=== PATIENT | female | born 1940 | race Caucasian/White ===

== ENCOUNTER 2016-09-20 08:19 | Inpatient (IN) | payer OTHER, MEDICARE ==
[2016-08-25 11:58] VITALS: BMI 34.0
--- NOTE | 2016-08-25 12:30 | PAT Medication Instructions ---
Service Date Aug 25, 2016. Current Home Medication List Aspirin (Aspirin Ec), 81 MG PO QPM Atorvastatin (Lipitor), 20 MG PO HS Losartan Potassium (Cozaar), 50 MG PO QAM Meloxicam (Mobic), 15 MG PO DAILY PRN for Pain Metoprolol Tartrate (Lopressor) (Lopressor), 25 MG PO QPM Metoprolol Tartrate (Lopressor) (Lopressor), 50 MG PO QAM Sertraline (Zoloft), 50 MG PO QAM Medication Instructions For Your Scheduled Surgery - Hold the following medications per surgeon's instructions: Meloxicam (Mobic), 15 MG PO DAILY PRN for Pain - Hold the following medications the morning of surgery: Losartan Potassium (Cozaar), 50 MG PO QAM - Take the following medications the morning of surgery with a sip of water OTHERWISE NOTHING TO EAT OR DRINK AFTER MIDNIGHT: Sertraline (Zoloft), 50 MG PO QAM Metoprolol Tartrate (Lopressor) (Lopressor), 50 MG PO QAM - Take the following medications as scheduled the night before surgery: Aspirin (Aspirin Ec), 81 MG PO QPM Atorvastatin (Lipitor), 20 MG PO HS Metoprolol Tartrate (Lopressor) (Lopressor), 25 MG PO QPM If you have any questions please call us at [phone] or [phone] or [phone]
[2016-08-25 12:56] LABS: BASO % 0.3 %; BASO ABS # 0.02 K/uL (0-0.2); COMPLETE YES; EOS % 1.6 %; HEMATOCRIT 41.4 % (37-47); IG% 0.2 %; LYMPH % 35.4 %; LYMPH ABS # 2.16 K/uL (1.2-3.4); MEAN CELL VOLUME 91.2 fL (80-100); MEAN CORPUSCULAR HEMOGLOBIN 30.4 pg (25-34); MEAN CORPUSCULAR HGB CONC 33.3 g/dl (32-36); MEAN PLATELET VOLUME 9.7 fL (7.4-10.4); MONO % 6.5 %; PLATELET COUNT 124 K/uL (130-400); RED BLOOD COUNT 4.54 M/uL (4.2-5.4); WHITE BLOOD COUNT 6.11 K/uL (4.8-10.8)
--- NOTE | 2016-08-25 13:00 | DIAGNOSTIC IMAGING REPORT ---
CHEST 2 VIEWS ROUTINE CLINICAL HISTORY: Preoperative evaluation. COMPARISON STUDY: No previous studies for comparison. FINDINGS: No pneumothorax or pleural effusion is present. There is no evidence of pulmonary edema. There are left axillary surgical clips. There is mild to moderate cardiomegaly. IMPRESSION: 1. No acute findings. 2. Mild to moderate cardiomegaly. Electronically signed by: Jeremy Morris M.D. 08/25/2016 12:58 PM Dictated Date/Time: 08/25/2016 12:58 PM
[2016-08-25 13:13] LABS: INR 1.1 (0.9-1.1); PROTHROMBIN TIME (PATIENT) 11.4 SECONDS (9.0-12.0)
[2016-08-25 13:37] LABS: BUN/CREATININE RATIO 14.7 (10-20); CALCIUM 8.8 mg/dl (8.5-10.1); POTASSIUM 3.9 mmol/L (3.5-5.1)
--- NOTE | 2016-09-17 18:45 | HISTORY & PHYSICAL EXAMINATION ---
DATE OF ADMISSION: 09/20/2016 CHIEF COMPLAINT: Left knee pain. HISTORY OF PRESENT ILLNESS: A 75-year-old female referred by my partner Dr. Guillen for treatment of her left knee. She has got a fairly long history of left medial side knee pain, which has become less responsive to conservative treatment. She has been treated with injections. Initial ones helped, but become less successful over time. Pain is mostly all medial and increased with weightbearing. Now that has become less successful with injections and it has really changed her life and she cannot walk any significant distance. She has difficulty going to the grocery store. She would like to have something done to fix her knee pain. PAST MEDICAL HISTORY: 1. Hypertension. 2. Coronary artery disease, status post cardiac stent placement in 2008 without residual symptoms. 3. Sleep apnea. 4. Hiatal hernia. 5. Gastroesophageal reflux disease. 6. Obesity with a BMI of 35. 7. Breast cancer status post mastectomy without recurrence. PAST SURGICAL HISTORY: Include 1. Right ankle surgery 2001. 2. Cardiac stent placement in 2008. 3. Eye implant. 4. Mastectomy. ALLERGIES: None. CURRENT MEDICINES: 1. Aspirin 81 mg a day. 2. Meloxicam once a day. 3. Atorvastatin 20 mg at bedtime. 4. Sertraline 50 mg in the morning. 5. Losartan 50 mg in the morning. 6. Metoprolol 25 mg 2 tablets in the morning, 1 in the evening. SOCIAL HISTORY: A 75-year-old female. She lives by herself. FAMILY HISTORY: Noncontributory. REVIEW OF SYSTEMS: Negative for diabetes, neurologic problems, vascular or bleeding disorders. Denies any current chest pain or shortness of breath. She does have a stent placed, but no symptoms. PHYSICAL EXAMINATION: GENERAL: Reveals a healthy, pleasant middle-aged female. Looks to be in reasonably good health. HEENT: Benign. NECK: Supple. No lymphadenopathy. LUNGS: Clear to auscultation. HEART: Regular rate and rhythm. ABDOMEN: Soft, nontender, nondistended. EXTREMITIES: Grossly neurovascularly intact except as follows: Examination of the left knee reveals the patient walks with a slight bit of a limp. She has got varus alignment to the knee. She is tender over the medial joint line. She got bony hypertrophy. Small knee effusion. Range of motion is a couple of degrees short of full extension to 125 degrees of flexion. No instability. X-RAYS: X-rays of the left knee were reviewed. It shows advanced medial compartment DJD. She has got complete loss of medial joint space. The lateral compartment looks pretty well preserved. Patellofemoral compartment looks pretty well preserved. With stress testing of her lateral compartments well preserved. ASSESSMENT: A 75-year-old female with isolated medial compartment degenerative joint disease, failed conservative care. She would like to have something done to fix her pain. PLAN: We are going to take her to the operating room and do a left partial knee replacement. If we get in there and the disease is too bad, we will do a full knee replacement. The risks and benefits of this procedure were explained to the patient including but not limited to DVT, PE, , infection, neurological injury, vascular injury, bleeding problem, pain, limited range of motion, stiffness, failure to his symptoms, incomplete relief of symptoms, need for further surgery in the future, fracture, leg length inequality, nerve palsy, persistent pain, dislocation, need for revision surgery, etc. The patient understands and desires to proceed. Informed consent was obtained. We talked about stopping her Mobic 10 days preop. She will take metoprolol the morning of surgery. Her lab workup has all been normal. As far as discharge plans, she is hoping to be discharged to rehab as she does live by herself.
[2016-09-20] VITALS (8 sets, daily range): BP systolic 93–136; BP diastolic 53–75; PULSE 51–67; TEMP 36.2–36.8; O2SAT 95–99; Ht 152.4 cm; Wt 79.6 kg
[~2016-09-20] VITALS: Ht 152.4 cm; Wt 79.6 kg
[~2016-09-20 08:19] MED LIST: ACETAMINOPHEN 500 MG TAB PO SCH; ASPI81TA28 PO; ATOR-22 PO; BUPIVACAINE 0.5 % 5 MG/1 ML PF 10ML VIAL ONE; BUPIVACAINE LIPOSOME 266 MG, BUPIVACAINE/EPINEPHRINE INJ 50 ML, SODIUM CHLORIDE 0.9% PF... INFIL SCH; CEFAZOLIN 2000 MG/60 ML D5W 60 ML IV SCH; FAMOTIDINE 20 MG TAB PO SCH; GABAPENTIN 300 MG CAP PO SCH; LACTATED RINGER'S 1000ML 1,000 ML IV SCH; LACTATED RINGER'S 1000ML 500 ML IV ONE; LACTATED RINGER'S 1000ML IV SCH; LOSA50TA6 PO; MELO7.5T5 PO; METO25TA56 PO; METO50TA16 PO; METOCLOPRAMIDE HCL 10 MG TAB PO SCH; SCOPOLAMINE 1.5 MG TDSY TD SCH; SERT50TA PO; TRANEXAMIC ACID INJ 1,000 MG in SODIUM CHLORIDE 0.9% 100ML 100 ML IV SCH
--- NOTE | 2016-09-20 09:08 | History & Physical Bridge Note ---
H&P Re-Evaluation Bridge Note: I have examined the patient, reviewed the History & Physical and in the interval since the performance of the History & Physical I have noted the following changes of clinical significance: No changes noted
[2016-09-20] MEDS ORDERED: MIDAZOLAM HCL 1 MG/ML 2ML VIAL ONE ×2 (09:39)
[2016-09-20] MEDS ORDERED: LIDOCAINE HCL 2% 2 ML VIAL (20MG/ML) ONE (10:51)
[2016-09-20] MEDS ORDERED: BUPIVACAINE/EPINEPHRINE 0.25% 1:200,000 30 ML VIAL ONE (10:51)
[2016-09-20] MEDS ORDERED: SODIUM CHLORIDE 0.9% PF 50 ML VIAL ONE (10:51)
[2016-09-20] MEDS ORDERED: BACITRACIN 50000 UNIT VIAL ONE (10:51)
[2016-09-20] MEDS ORDERED: PROPOFOL IV EMULSION 10 MG/ML 20 ML VIAL IV ONE (10:51)
[2016-09-20] MEDS ORDERED: BUPIVACAINE LIPOSOME 1/3% 266 MG/20 ML VIAL INFIL ONE (10:51)
[2016-09-20] MEDS ORDERED: EpHEDrine SULFATE 50MG/5ML SYR ONE (11:16)
[2016-09-20] MEDS ORDERED: EpHEDrine SULFATE INJ 50 MG/ML AMP IV PRN (12:00)
[2016-09-20] MEDS ORDERED: ATROPINE SULFATE 0.1 MG/ML 5ML SYR IV PRN (12:00)
[2016-09-20] MEDS ORDERED: ONDANSETRON INJ 2 MG/ML 2 ML VIAL IV PRN ×2 (12:00→13:00)
[2016-09-20] MEDS ORDERED: FENTANYL CITRATE INJ 50 MCG/1 ML 2 ML VIAL IV PRN (12:00)
--- NOTE | 2016-09-20 12:55 | [facility] Post Operative Brief Note ---
Immediate Operative Summary Operative Date Sep 20, 2016. Pre-Operative Diagnosis left knee degenerative joint disease Post-Operative Diagnosis same Procedure(s) Performed left unicompartmental knee arthroplasty Surgeon Dr Cody Pereira Director On Air Surgeon(s) Dionicio Boo Estimated Blood Loss 20ML Findings Left Knee DJD Fluids (cc crystalloids) 1100 cc Specimens A: Left knee bone and tissue Drains None Anesthesia Spinal Complication(s) None Disposition Recovery Room / PACU
[2016-09-20] MEDS ORDERED: ZOLPIDEM TARTRATE 5 MG TAB PO PRN (13:00)
[2016-09-20] MEDS ORDERED: SILVER SULFADIAZINE 1% CR 50 GM JAR EXT PRN (13:00)
[2016-09-20] MEDS ORDERED: MAGNESIUM HYDROXIDE SUSP 30 ML UDC PO PRN (13:00)
[2016-09-20] MEDS ORDERED: ALUMINUM/MAGNESIUM/SIMETH (MAALOX MAX) 30 ML UDC PO PRN (13:00)
[2016-09-20] MEDS ORDERED: BISACODYL 10 MG SUPP PR PRN (13:00)
[2016-09-20] MEDS ORDERED: DiphenhydrAMINE HCL 50 MG/ML VIAL IV PRN (13:00)
[2016-09-20] MEDS ORDERED: METOCLOPRAMIDE HCL INJ 5 MG/ML 2 ML VIAL IV PRN (13:00)
--- NOTE | 2016-09-20 13:43 | DIAGNOSTIC IMAGING REPORT ---
TWO VIEWS LEFT KNEE CLINICAL HISTORY: Postoperative examination. FINDINGS: AP and crosstable lateral portable views of the left knee are obtained. A left knee hemiarthroplasty of the medial compartment is in near anatomic alignment. Degenerative narrowing seen at the patellofemoral articulation. No acute fracture is identified. There are expected postoperative changes around the knee including skin clips, soft tissue edema, and subcutaneous gas. IMPRESSION: Expected postoperative changes status post left knee hemiarthroplasty. No acute fracture is seen. Electronically signed by: Gerard Shepard M.D. 09/20/2016 1:42 PM Dictated Date/Time: 09/20/2016 1:41 PM
--- NOTE | 2016-09-20 14:33 | OPERATIVE REPORT ---
DATE OF OPERATION: 09/20/2016 SURGEON: Dr. Cody Pereira. GRAIN ELEVATOR CLERK: JUNAID Joy PREOPERATIVE DIAGNOSIS: Left knee medial compartment degenerative joint disease. POSTOPERATIVE DIAGNOSIS: Same. PROCEDURE PERFORMED: Left knee Bi[employer] [place] mobile-bearing partial knee replacement. COMPLICATIONS: None. ESTIMATED BLOOD LOSS: 20 mL. FLUID REPLACEMENT: 1100 mL crystalloid fluid replacement. ANESTHESIA: Spinal. DRAINS: None. SPECIMENS: Left knee sent for pathology. TOURNIQUET TIME: 62 minutes at 300 mmHg. OPERATIVE INDICATIONS: The patient is a 75-year-old fairly active, independent female who has had a several year history of increasing left knee pain and discomfort. It has become unresponsive to conservative treatment. Her symptoms really localized to the medial side of her knee. X-rays showed advanced medial compartment DJD. The patient was strongly desiring partial knee replacement. OPERATIVE FINDINGS: Operative findings revealed grade 4 mlwh-[id number] disease in the medial femoral condyle and medial tibial plateau. She did have some grade 2 changes laterally as well as in the patellofemoral joint. She has a [id number] sized knee joint effusion. She had osteophytes of the medial femoral condyle and medial tibial plateau. OPERATIVE IMPLANTS: Operative implants consisted of: 1. [employer] [place] size small femoral component. 2. [employer] [place] left medial size AA tibia. 3. A 4 mm mobile-bearing polyethylene insert. OPERATIVE PROCEDURE: The patient was taken to the operating room, identified and placed on the operating table in supine position. All contact areas were appropriately padded. IV antibiotics were provided by anesthesia team. A spinal anesthetic and adductor canal block had been provided in the holding area. Avendano catheter was placed in sterile fashion. A left thigh tourniquet was then placed. Left lower extremity was then prepped and draped in the usual sterile fashion. The left leg was elevated and exsanguinated with Esmarch and tourniquet was placed at 300 mmHg. An anterior approach of the left knee was then performed through a longitudinal incision extending from the superior pole of the patella just medial to the tibial tubercle. Sharp dissection was carried through the subcutaneous tissues down to the level of the extensor mechanism. A medial parapatellar arthrotomy incision was made. Some subperiosteal dissection was carried out medially. Great care was taken to protect the medial collateral ligament at all times. The osteophytes were taken off the distal femur. The femur was then sized to a size small. The external tibial alignment jig was then placed in the anterior face of the tibia and attached to the small femoral spoon. The tibial guide was then secured with the use of a pin. The proximal tibial cut was made and then sized to a size AA tibia. Attention was then drawn to the femur. The distal femur was entered with a sharp drill. Intramedullary guide was placed. A small femoral template was then placed and set for the 4 setting. The holes were drilled for the femoral component. The posterior cutting guide was placed and the posterior cut was made. The 0 spigot was placed and the distal femur was milled. I then removed the medial meniscus. We then trialed the knee and the 4 feeler gauge fit appropriately in flexion and the 2 in extension. The 2 spigot was used to mill the distal femur and we milled the distal femur. We then trialed it again and the 4 feeler gauge fit appropriately in both flexion and extension. I then went to preparing the surfaces. The anterior and posterior osteophyte guide was then placed in the distal femur and the anterior osteophyte and the posterior osteophyte were removed. The cement drill was used to create some cement holes for cement interdigitation. The tibial tray was pinned in place. The toothbrush blade saw was used to create the keel for the tibial tray. We then trialed the knee one more time and the 4 insert fit most appropriately in both flexion and extension. The polyethylene tracked appropriately. Soft tissue tension was appropriate. Attention was then drawn toward placement of these implants. All trial implants were removed. The wound was irrigated with copious amounts of pulsatile lavage solution. A single batch of [place] G cement was mixed. A left size AA medial tibial tray was then cemented in place followed by a small femoral component. I then pressurized with the 4 feeler gauge. The knee was brought out into about 30 degrees short of full extension until cement had hardened. A final cement check was then performed. We then trialed the knee again. I then placed a formal bearing insert. The wound was then irrigated extensively. The tourniquet was then let down for a tourniquet time of 62 minutes. Hemostasis was assured with use of electrocautery. The extensor mechanism was then closed with #1 Vicryl suture. The subcutaneous tissues were then closed with 2-0 Dexon suture in a buried interrupted fashion. Skin was closed with skin ashley. Leg was then cleaned and dried and a sterile dressing of Xeroform, 4 x 4, sterile cast padding and Teddy bandage were applied. The patient was then transferred to the recovery room in stable condition. The patient tolerated the procedure well and no complications. All needle and sponge counts were correct at the end of the operation. I attest to the content of the Intraoperative Record and any orders documented therein. Any exceptio ns are noted below.
--- NOTE | 2016-09-20 14:36 | Anesthesiology Progress Note ---
Anesthesia Post Op Note Date & Time Sep 20, 2016 at 14:36 Vital Signs Pain Intensity: 0 Vital Signs Past 12 Hours Date Time Temp Pulse Resp B/P Pulse Ox O2 Delivery O2 Flow Rate FiO2 09/20/16 14:15 36.7 65 15 97/56 95 Nasal Cannula 2 09/20/16 14:00 67 14 97/51 95 Nasal Cannula 2 09/20/16 13:50 70 12 97/60 97 Nasal Cannula 2 09/20/16 13:40 59 13 90/50 97 Nasal Cannula 2 09/20/16 13:30 74 14 99/50 96 Nasal Cannula 2 09/20/16 13:20 59 14 107/58 99 Mask 10 09/20/16 13:10 59 13 101/49 98 Mask 10 09/20/16 13:00 36.8 62 18 92/52 99 Mask 10 09/20/16 08:30 36.5 55 18 136/69 96 Room Air 09/20/16 08:30 36.5 57 18 136/69 96 Room Air Notes Mental Status: alert / awake / arousable, participated in evaluation Pt Amnestic to Procedure: Yes Nausea / Vomiting: adequately controlled Pain: adequately controlled Airway Patency, RR, SpO2: stable & adequate BP & HR: stable & adequate Hydration State: stable & adequate Neuraxial Anesthesia: was administered, sensory block is resolving Anesthetic Complications: no major complications apparent
[2016-09-20] MEDS: D5W AND 1/2NSS + 20MEQ KCL 1,000 ML IV SCH ×2 (15:47→23:42)
[2016-09-20] MEDS: CHECK SCOPOLAMINE PATCH PLACEMENT SCH ×2 (15:52→23:41)
[2016-09-20] MEDS: FERROUS GLUCONATE 324 MG TAB PO SCH (17:42)
[2016-09-20] MEDS: KETOROLAC TROMETHAMINE 15 MG/ML VIAL IV. SCH ×2 (17:43→23:41)
--- NOTE | 2016-09-20 18:11 | PROGRESS NOTE ---
DATE: 09/20/2016 SUBJECTIVE: A 75-year-old female postop from a left partial knee replacement. She is doing well. Not having any pain yet. No chest pain or shortness of breath. Not feeling dizzy or lightheaded. OBJECTIVE: VITAL SIGNS: Temperature 36.3. Vital signs stable. GENERAL: Physical examination reveals a healthy pleasant elderly female. She is sitting up in bed and looks pretty comfortable. LUNGS: Clear to auscultation. HEART: Regular rate and rhythm. ABDOMEN: Soft, nontender, and nondistended. EXTREMITIES: Grossly neurovascularly intact except as follows: Examination of the left lower extremity reveals the leg to be well aligned. Dressing is clean, dry and intact. She can dorsiflex and plantarflex her foot appropriately. X-RAYS: X-rays of the left knee were reviewed from the recovery room. It shows a left partial knee replacement. Components looked to be in good position. No signs of problems. ASSESSMENT: A 75-year-old female postop from a left partial knee replacement, doing well. Her pain is controlled. She is neurologically intact. PLAN: 1. DVT prophylaxis including thigh-high TEDs, SCDs, and aspirin twice a day. 2. PT/OT. She can bear as tolerated. Left total knee protocol. 3. Pain control, doing well with current pain regimen. 4. Disposition: She is hoping to be discharged to rehab for a brief rehab stay once stable. She does live by herself and will need some assistance. MARLA
[2016-09-20] MEDS: CEFAZOLIN IV 1,000 MG in DEXTROSE 5% 50ML 50 ML IV SCH (20:41)
[2016-09-20] MEDS: DOCUSATE SODIUM 100 MG CAP PO SCH (20:43)
[2016-09-20] MEDS: ASPIRIN 325 MG ECTAB PO SCH (20:43)
[2016-09-20] MEDS: ATORVASTATIN 20 MG TAB PO SCH (20:43)
[2016-09-20] MEDS: METOPROLOL TARTRATE 25 MG TAB PO SCH (20:45)
[2016-09-20] MEDS: ACETAMINOPHEN 500 MG TAB PO SCH (21:37)
[2016-09-21] VITALS (8 sets, daily range): BP systolic 112–143; BP diastolic 63–78; PULSE 60–74; TEMP 36.7–36.9; O2SAT 93–94
[2016-09-21] MEDS: CEFAZOLIN IV 1,000 MG in DEXTROSE 5% 50ML 50 ML IV SCH (03:28)
[2016-09-21] MEDS: ACETAMINOPHEN 500 MG TAB PO SCH ×3 (05:22→22:04)
[2016-09-21] MEDS: KETOROLAC TROMETHAMINE 15 MG/ML VIAL IV. SCH ×3 (05:22→19:20)
[2016-09-21] MEDS ORDERED: ASPEC325 PO (07:13)
[2016-09-21] MEDS ORDERED: FRRG PO (07:13)
[2016-09-21] MEDS ORDERED: ULT50X PO (07:13)
--- NOTE | 2016-09-21 07:15 | Discharge Instructions ---
Discharge Instructions Date of Service Sep 21, 2016. Admission Reason for Admission: Osteoarthritis of Left Knee; Knee pain Discharge Discharge Diagnosis / Problem: Left Partial Knee Replacement Discharge Goals Goal(s): Decrease discomfort, Improve function, Increase independence, Improve disease control, Therapeutic intervention Activity Recommendations Activity Level: Assistance Required Therapies: Physical Therapy, Occupational Therapy Weightbearing Status: Left weightbearing . Additional Information Patient informed of condition: Yes Advance Directives: No DNR: No Level of Care: Acute Rehab Communicable Disease: No Prognosis: Improving Instructions / Follow-Up Instructions / Follow-Up ACTIVITY RECOMMENDATIONS: Physical Therapy: * You will go to physical therapy three times each week for four to six weeks after your surgery in order to regain your knee range of motion and to retrain your knee to work properly. * It is just as important to make sure you are getting your knee perfectly straight as it is to regain your knee bend. * Taking a pain pill an hour before therapy can help you have a more productive and comfortable therapy session. Home Exercise: * You were shown a series of exercises (heel props, heel slides, etc.) in the hospital. Do these exercises three to four times each day including the exercises you were shown in physical therapy. Walking: * Get up and walk several times each day. For the first four weeks, try not to stand or walk for more than one hour at a time. If you do stand or walk for more than one hour, you will not hurt anything, but your knee and leg will likely swell. * As you feel comfortable, you may change from the walker or crutches to a cane and then to independent walking. MEDICATIONS: New Medicine: * You will likely be taking one or more of these medications: 1. Tramadol - A quick and shorter-acting pain medication. Take one to two tablets every four to six hours to lessen your pain. 2. Iron Sulfate - Take three times each day for the month after surgery to help you replace the blood lost during surgery. 3. Aspirin - Thins your blood to lessen the chance of forming a blood clot. * The most common side effects of pain medicine and iron are nausea and constipation. If nausea or constipation is too much of a problem or if you have any questions about your new medicines or doses, call [facility] at . We will try to help you manage these issues. VERY IMPORTANT TO READ AND REVIEW" Pain: * The immediate post-operative period after knee replacement surgery is often quite painful. * You are given a prescription for pain medicine. You should take it, as directed, when you need it, especially before physical therapy and before going to bed. Pain that interferes with sleep is very common and can last several months. * You will likely need pain medicine for the first four to six weeks. It will not stop all of the pain. The pain will lessen and as you feel better, you may change to milder pain medicine such as Tylenol. * The most common side effects of pain medicine are nausea and constipation, so don't take more than you need. SPECIAL CARE INSTRUCTIONS: TEDs/Elastic Stockings: * The white elastic stockings help limit swelling and prevent blood clots from forming in your legs. The more you wear them, the more they work. * Wear them for six weeks after knee replacement surgery and four weeks after partial knee replacement. Prevention of Infection: * Take antibiotics one hour before any dental cleaning, dental work, urological procedure, gastrointestinal procedure or any invasive surgery in order to prevent your new joint from getting infected. * You may get the antibiotics from the doctor performing the procedure or you may call our office at before and we will call in a prescription to the pharmacy of your choice. Things to Watch For: * Drainage from the incision site that occurs more than one week after your surgery. * Severely increased knee/leg pain or swelling. * Increased redness at the incision site. * Fever above 102 degrees Fahrenheit. * Unusual chest pain or shortness of breath. * Unusual pain or burning with urination. Call [facility] at with any of the above problems or if you have any questions about your medicines or recovery. FOLLOW UP VISIT: Make an appointment to see your doctor for approximately two weeks after surgery for a progress check and staple removal by calling the office at . Current Hospital Diet Patient's current hospital diet: Regular Diet Discharge Diet Recommended Diet: Regular Diet Procedures Procedures Performed: left unicompartmental knee arthroplasty Pending Studies Studies pending at discharge: no Medical Emergencies . Who to Call and When: Medical Emergencies: If at any time you feel your situation is an emergency, please call [phone] immediately. . Non-Emergent Contact Non-Emergency issues call your: Surgeon . . "Provider Documentation" section prepared by Cody Pereira. Core Measure Problem Core Measures: None
[2016-09-21] MEDS: CHECK SCOPOLAMINE PATCH PLACEMENT SCH ×3 (08:27→23:09)
[2016-09-21] MEDS: FERROUS GLUCONATE 324 MG TAB PO SCH ×3 (09:38→18:15)
[2016-09-21] MEDS: ASPIRIN 325 MG ECTAB PO SCH ×2 (09:39→20:54)
[2016-09-21] MEDS: LOSARTAN POTASSIUM 50 MG TAB PO SCH (09:39)
[2016-09-21] MEDS: METOPROLOL TARTRATE 25 MG TAB PO SCH ×2 (09:39→20:55)
[2016-09-21] MEDS: DOCUSATE SODIUM 100 MG CAP PO SCH ×2 (09:39→20:58)
[2016-09-21] MEDS: METOPROLOL TARTRATE 50 MG TAB PO SCH (09:40)
[2016-09-21] MEDS: SERTRALINE HCL 50 MG TAB PO SCH (09:40)
[2016-09-21] MEDS: MULTIVITAMIN TAB PO SCH (09:40)
[2016-09-21] MEDS: D5W AND 1/2NSS + 20MEQ KCL 1,000 ML IV SCH (12:18)
[2016-09-21] MEDS: TRAMADOL HCL 50 MG TAB PO PRN ×2 (13:01→20:56)
--- NOTE | 2016-09-21 13:43 | Anesthesiology Progress Note ---
Anesthesia Post Op Note Date & Time Sep 21, 2016 at 13:43 Vital Signs Vital Signs Past 12 Hours Date Time Temp Pulse Resp B/P Pulse Ox O2 Delivery O2 Flow Rate FiO2 09/21/16 12:07 36.7 63 18 124/63 94 Room Air 09/21/16 09:56 Room Air 09/21/16 08:42 94 Room Air 09/21/16 08:01 36.7 63 18 124/63 94 Room Air 09/21/16 02:50 36.8 63 18 112/71 94 Room Air Notes Mental Status: alert / awake / arousable, participated in evaluation Pt Amnestic to Procedure: Yes Nausea / Vomiting: adequately controlled Pain: adequately controlled Airway Patency, RR, SpO2: stable & adequate BP & HR: stable & adequate Hydration State: stable & adequate Neuraxial Anesthesia: sensory block resolved Anesthetic Complications: no major complications apparent
--- NOTE | 2016-09-21 18:38 | PROGRESS NOTE ---
DATE: 09/21/2016 SUBJECTIVE: 75-year-old female postop day 1 from left partial knee replacement. She is doing pretty well. Some pain, but manageable. Therapy went reasonably well. Not having any chest pain or shortness of breath. Not feeling dizzy or lightheaded. OBJECTIVE: VITAL SIGNS: Temperature 37.3. Vital signs stable. PHYSICAL EXAMINATION: GENERAL: Reveals a healthy, pleasant elderly female. She is sitting in her bedside chair talking to her family. EXTREMITIES: Examination of the left leg reveals the leg to be well aligned. Dressing is clean, dry and intact. She can do a straight leg raise. She can dorsiflex and plantarflex her foot appropriately. She is neurologically intact. ASSESSMENT: 75-year-old female postop day 1 from a left partial knee replacement, doing pretty well. She does live by herself and she is hoping to go to rehab. Her pain is controlled. PLAN: 1. DVT prophylaxis including thigh-high TEDs, SCDs, and aspirin twice a day. 2. PT/OT. Weightbearing as tolerated. Left total knee protocol. 3. Pain control. Doing well with current pain regimen. We are going to try and limit narcotics to avoid confusion. 4. Disposition: She is hoping to be discharged to [facility]. If not she will be discharged to home likely with some home health and a friend's assistance.
--- NOTE | 2016-09-21 21:10 | Discharge Instructions ---
Discharge Instructions Date of Service Sep 21, 2016. Admission Reason for Admission: Osteoarthritis of Left Knee; Knee pain Discharge Discharge Diagnosis / Problem: Left Partial Knee Replacement Discharge Goals Goal(s): Decrease discomfort, Improve function, Increase independence, Improve disease control, Therapeutic intervention Activity Recommendations Activity Limitations: per Instructions/Follow-up section Weightbearing Status: Left weightbearing . Instructions / Follow-Up Instructions / Follow-Up ACTIVITY RECOMMENDATIONS: Physical Therapy: * You will go to physical therapy three times each week for four to six weeks after your surgery in order to regain your knee range of motion and to retrain your knee to work properly. * It is just as important to make sure you are getting your knee perfectly straight as it is to regain your knee bend. * Taking a pain pill an hour before therapy can help you have a more productive and comfortable therapy session. Home Exercise: * You were shown a series of exercises (heel props, heel slides, etc.) in the hospital. Do these exercises three to four times each day including the exercises you were shown in physical therapy. Walking: * Get up and walk several times each day. For the first four weeks, try not to stand or walk for more than one hour at a time. If you do stand or walk for more than one hour, you will not hurt anything, but your knee and leg will likely swell. * As you feel comfortable, you may change from the walker or crutches to a cane and then to independent walking. MEDICATIONS: New Medicine: * You will likely be taking one or more of these medications: 1. Tramadol - A quick and shorter-acting pain medication. Take one to two tablets every four to six hours to lessen your pain. 2. Iron Sulfate - Take three times each day for the month after surgery to help you replace the blood lost during surgery. 3 Aspirin - Thins your blood to lessen the chance of forming a blood clot. * The most common side effects of pain medicine and iron are nausea and constipation. If nausea or constipation is too much of a problem or if you have any questions about your new medicines or doses, call [facility] at [phone]. We will try to help you manage these issues. VERY IMPORTANT TO READ AND REVIEW" Pain: * The immediate post-operative period after knee replacement surgery is often quite painful. * You are given a prescription for pain medicine. You should take it, as directed, when you need it, especially before physical therapy and before going to bed. Pain that interferes with sleep is very common and can last several months. * You will likely need pain medicine for the first four to six weeks. It will not stop all of the pain. The pain will lessen and as you feel better, you may change to milder pain medicine such as Tylenol. * The most common side effects of pain medicine are nausea and constipation, so don't take more than you need. SPECIAL CARE INSTRUCTIONS: TEDs/Elastic Stockings: * The white elastic stockings help limit swelling and prevent blood clots from forming in your legs. The more you wear them, the more they work. * Wear them for six weeks after knee replacement surgery and four weeks after partial knee replacement. Prevention of Infection: * Take antibiotics one hour before any dental cleaning, dental work, urological procedure, gastrointestinal procedure or any invasive surgery in order to prevent your new joint from getting infected. * You may get the antibiotics from the doctor performing the procedure or you may call our office at before and we will call in a prescription to the pharmacy of your choice. Things to Watch For: * Drainage from the incision site that occurs more than one week after your surgery. * Severely increased knee/leg pain or swelling. * Increased redness at the incision site. * Fever above 102 degrees Fahrenheit. * Unusual chest pain or shortness of breath. * Unusual pain or burning with urination. Call [facility] at with any of the above problems or if you have any questions about your medicines or recovery. FOLLOW UP VISIT: Make an appointment to see your doctor for approximately two weeks after surgery for a progress check and staple removal by calling the office at . Current Hospital Diet Patient's current hospital diet: Regular Diet Discharge Diet Recommended Diet: Regular Diet Procedures Procedures Performed: left unicompartmental knee arthroplasty Pending Studies Studies pending at discharge: no Medical Emergencies . Who to Call and When: Medical Emergencies: If at any time you feel your situation is an emergency, please call [phone] immediately. . Non-Emergent Contact Non-Emergency issues call your: Surgeon . "Provider Documentation" section prepared by Cody Pereira. VTE Core Measure Inpt VTE Proph given/why not?: Other Anticoagulation, T.E.D. Stockings, SCD's
[2016-09-21] MEDS: ATORVASTATIN 20 MG TAB PO SCH (22:03)
[2016-09-22] MEDS: KETOROLAC TROMETHAMINE 15 MG/ML VIAL IV. SCH ×2 (00:08→06:14)
[2016-09-22] MEDS: ACETAMINOPHEN 500 MG TAB PO SCH (06:09)
[2016-09-22 06:11] VITALS: BP 144/83; PULSE 67; TEMP 36.7; O2SAT 94
--- NOTE | 2016-09-22 09:18 | PROGRESS NOTE ---
DATE: 09/22/2016 SUBJECTIVE: 75-year-old white female postop day 2 from a left partial knee replacement. She is doing well. Some pain but managed. Therapy went pretty well yesterday. Denies any chest pain or shortness of breath. Not feeling dizzy or lightheaded. Anxious to get out of the hospital. OBJECTIVE: VITAL SIGNS: Temperature 36.7. Vital signs stable. PHYSICAL EXAMINATION: GENERAL: Reveals a pleasant elderly female. She is sitting up in bed and looks comfortable. LUNGS: Clear to auscultation. HEART: Has a regular rate and rhythm. ABDOMEN: Soft, nontender, nondistended. EXTREMITIES: Grossly neurovascularly intact except as follows: Examination of the left lower extremity reveals the leg to be well aligned. Dressing is clean, dry and intact. She can do a straight leg raise. She is neurologically intact. ASSESSMENT: 75-year-old white female postop day 2 from a left partial knee replacement doing pretty well. Pain is controlled. PLAN: 1. DVT prophylaxis including thigh-high TEDs, SCDs, and aspirin twice a day. 2. PT/OT. Weightbearing as tolerated. Left total knee protocol. 3. Pain control, doing well with current pain regimen. We are going to try and limit narcotics to avoid confusion. 4. Disposition: She is hoping to be discharged to [facility] for a brief rehab stay.
[2016-09-22] MEDS: SERTRALINE HCL 50 MG TAB PO SCH (09:31)
[2016-09-22] MEDS: FERROUS GLUCONATE 324 MG TAB PO SCH (09:31)
[2016-09-22] MEDS: LOSARTAN POTASSIUM 50 MG TAB PO SCH (09:32)
[2016-09-22] MEDS: DOCUSATE SODIUM 100 MG CAP PO SCH (09:32)
[2016-09-22] MEDS: MULTIVITAMIN TAB PO SCH (09:32)
[2016-09-22] MEDS: ASPIRIN 325 MG ECTAB PO SCH (09:32)
[2016-09-22] MEDS: METOPROLOL TARTRATE 50 MG TAB PO SCH (09:33)
[2016-09-22 11:21] VITALS: BP 144/83; PULSE 67; TEMP 36.7; O2SAT 94
--- NOTE | 2016-10-06 01:54 | DISCHARGE SUMMARY ---
ADMITTING PHYSICIAN AND SURGEON: Dr. Cody Pereira. ADMITTING DIAGNOSIS: Left knee medial compartment degenerative joint disease. SURGERY PERFORMED: Left partial knee replacement. SECONDARY DIAGNOSES: Hypertension, coronary artery disease, sleep apnea, hiatal hernia, gastroesophageal reflux disease, obesity, breast cancer. CONSULTS: None obtained. HISTORY AND PHYSICAL EXAMINATION: Well documented in the patient's chart. HOSPITAL COURSE: The patient was admitted on 09/20/2016 underwent partial knee replacement. He tolerated the procedure well. There were no complications. She was transferred to the PACU postoperatively and later to the orthopedic floor for further care. She was given Ancef for antibiotic prophylaxis, DEVON stockings, SCDs and aspirin for DVT prophylaxis. Vital signs were monitored during her hospital stay and remained stable. She did not require any blood transfusions. There were no complications. By postoperative day 2, she was tolerating a general diet, pain was controlled with oral pain medicine. She was participating in physical therapy and had no signs or symptoms of deep vein thrombosis. On postop day 2, she was transferred to a rehab facility. She was given printed discharge instructions including prescriptions for aspirin 325 mg b.i.d., iron supplement, tramadol. Continue her home medicines with the exception of her home dose of aspirin which was changed. Continue physical therapy, weightbearing as tolerated. DEVON stockings. Follow up in 10-12 days or sooner if there are any problems or concerns.
== END 2016-09-22 11:33 | DRG 470 ==
LOC: ENRESERVDT → ENRESERVTM → C.ACU 08:19 → C.3E 09:00
PROVIDERS: ADMIT Orthopaedic Surgery Sports Medicine; ATTEND Orthopaedic Surgery Sports Medicine
PROC: 0SRD0L9 Replacement of Left Knee Joint with Medial Unicondylar Synthetic Substitute, Cemented, Open Approach (ICD-10-PCS; principal; 2016-09-20 10:40)
DX: M17.12 Unilateral primary osteoarthritis, left knee (principal); I10 Essential (primary) hypertension; K21.9 Gastro-esophageal reflux disease without esophagitis; E66.9 Obesity, unspecified; Z68.35 Body mass index [BMI] 35.0-35.9, adult; Z79.82 Long term (current) use of aspirin; Z79.899 Other long term (current) drug therapy

== ENCOUNTER 2017-08-06 11:21 | Emergency (ER) | payer OTHER, MEDICARE ==
[~2017-08-06 11:21] MED LIST changes: -ACETAMINOPHEN 500 MG TAB PO SCH; +ASPEC325 PO; -ASPI81TA28 PO; -BUPIVACAINE 0.5 % 5 MG/1 ML PF 10ML VIAL ONE; -BUPIVACAINE LIPOSOME 266 MG, BUPIVACAINE/EPINEPHRINE INJ 50 ML, SODIUM CHLORIDE 0.9% PF... INFIL SCH; -CEFAZOLIN 2000 MG/60 ML D5W 60 ML IV SCH; -FAMOTIDINE 20 MG TAB PO SCH; +FRRG PO; -GABAPENTIN 300 MG CAP PO SCH; -LACTATED RINGER'S 1000ML 1,000 ML IV SCH; -LACTATED RINGER'S 1000ML 500 ML IV ONE; -LACTATED RINGER'S 1000ML IV SCH; -METOCLOPRAMIDE HCL 10 MG TAB PO SCH; -SCOPOLAMINE 1.5 MG TDSY TD SCH; -TRANEXAMIC ACID INJ 1,000 MG in SODIUM CHLORIDE 0.9% 100ML 100 ML IV SCH; +ULT50X PO
[2017-08-06 11:23] VITALS: Ht 157.5 cm
--- NOTE | 2017-08-06 12:13 | EMERGENCY ROOM VISIT NOTE ---
History Report prepared by Neftaly: Abhijeet Moreno Under the Supervision of: Dr. Moe Roberts M.D. First contact with patient: 11:51 Chief Complaint: CONFUSION Stated Complaint: CONFUSION,VISION LOSS History of Present Illness The patient is a 76 year old female who presents to the Emergency Room with complaints of intermittent memory loss for one week. Per son, the patient called him on and then called again stating she had not called him in three weeks. The patient also called a cousin and could not identify who he was. She states that she is having difficulty reading and remembering. Per daughter, the patient is being treated for Lyme disease. She was treated years ago for Lyme, though was asymptomatic at the time. She has been on the medication for a week. She notes visual changes to her lateral right eye. She reports a headache since yesterday. Per daughter, she could not repeat her ABCs yesterday. Per family, the patient sounded as though she was intoxicated, though she does not drink alcohol. She has a history of CAD and breast cancer ( remission). She denies any falls or fevers. She lives independently. Source of History: patient, family Onset: one week Position: other (global ) Quality: other (memory loss) Timing: intermittent Associated Symptoms: + headache, No fevers Note: She notes difficulty reading and remembering. She notes visual changes to her lateral right eye. She denies any falls. Review of Systems See HPI for pertinent positives & negatives. A total of 10 systems reviewed and were otherwise negative. Past Medical & Surgical Medical Problems: (1) Left Knee DJD Old medical records were reviewed. Nurse's notes were reviewed and I agree with. Family History No significant family history Social History Smoking Status: Never Smoker Smokeless Tobacco Use: No Alcohol Use: none Drug Use: none Marital Status: single Housing Status: lives alone Occupation Status: unemployed Current/Historical Medications Scheduled Aspirin (Aspirin Chewable), 81 MG PO DAILY Atorvastatin (Lipitor), 20 MG PO HS Doxycycline Monohydrate (Monodox), 100 MG PO BIDM Losartan Potassium (Cozaar), 100 MG PO DAILY Metoprolol Tartrate (Lopressor) (Lopressor), 25 MG PO BID Sertraline (Zoloft), 100 MG PO DAILY Scheduled PRN Acetaminophen (Tylenol), 500 MG PO QID PRN for Pain Homeopathic Products (Leg Cramp Relief), 1 TAB PO UD PRN for LEG CRAMPS Allergies Coded Allergies: Lisinopril (Verified Allergy, Unknown, COUGH, 08/06/17) Simvastatin (Verified Allergy, Unknown, UNKNOWN, 08/06/17) Cephalexin (Unverified Adverse Reaction, Unknown, CRAMPS, 08/06/17) Physical Exam Vital Signs Date Time Temp Pulse Resp B/P (MAP) Pulse Ox O2 Delivery O2 Flow Rate FiO2 08/06/17 16:36 50 19 93 08/06/17 16:06 67 18 97 08/06/17 16:01 55 13 96 08/06/17 15:31 65 23 97 08/06/17 15:01 64 21 95 08/06/17 14:56 50 17 134/73 95 08/06/17 14:26 56 13 97 08/06/17 14:21 56 20 97 08/06/17 14:01 152/99 08/06/17 13:51 72 18 96 08/06/17 13:31 134/74 08/06/17 13:21 49 19 97 08/06/17 13:08 148/73 08/06/17 13:00 51 20 148/73 98 Room Air 08/06/17 12:27 56 08/06/17 11:23 36.6 58 20 139/72 96 Room Air Physical Exam General: Non-ill appearing older female in no acute distress. HEENT: Normal cephalic atraumatic. Pupils are equal round and reactive to light. Extraocular movements are intact. Oropharynx is pink with moist mucous membranes. No swelling of the mouth lips or tongue. Neck: Supple with a midline trachea. No meningeal signs or stiffness, no JVD or bruits. No Stridor. Chest: Clear to auscultation bilaterally. No wheezes or rhonchi. No increased work of breathing. Heart: regular rate and rhythm. Abdomen: Soft nontender, nondistended without rebound guarding or rigidity. Extremities: No cyanosis clubbing or edema. No calf tenderness or assymetry Spine/Back. Non tender to palpation. No CVA tenderness Skin: Good turgor without rashes. Neurologic exam: Cranial nerves two through 12 are intact. Motor and sensation are intact and symmetrical throughout. Normal speech; however, the patient cannot read letters, though identifies objects correctly. Decreased vision on right lateral eye. Sloppy handwriting compared to baseline. Medical Decision & Procedures ER Provider Diagnostic Interpretation: Radiology results as stated below per my review and radiologist interpretation: CHEST ONE VIEW PORTABLE CLINICAL HISTORY: 76 years-old Female presenting with CHEST PAIN. TECHNIQUE: Portable upright AP view of the chest was obtained. COMPARISON: 08/25/2016.. FINDINGS: Atherosclerosis of aortic arch. Cardiac silhouette mildly enlarged. Apparent right apical paramediastinal opacity. Lungs and pleural spaces otherwise clear. Degenerative changes of the thoracic spine. Surgical clips noted in the left axilla unchanged. IMPRESSION: 1. Apparent right apical paramediastinal opacity may represent a vascular structure versus less likely consolidation. 2. Mild cardiomegaly. 3. No convincing evidence of acute cardiopulmonary disease. Electronically signed by: Jose R Schmitz M.D. 08/06/2017 12:27 PM Dictated Date/Time: 08/06/2017 12:25 PM HEAD WITHOUT CONTRAST (CT) CLINICAL HISTORY: 76 years-old Female presenting with confusion, dysgraphia, aphasia. TECHNIQUE: Multidetector CT imaging of the head was performed without the use of intravenous contrast. IV contrast: None. A dose lowering technique was used consistent with the principles of ALARA (as low as reasonably achievable). COMPARISON: None. CT DOSE (mGy.cm): The estimated cumulative dose is 537.48 mGy.cm. FINDINGS: [employer] topogram: Unremarkable. Effacement of the trigone and temporal horn of the left lateral ventricle due to a partially cystic appearing hypodense lesion in the posterior left temporal lobe extending into the left occipital lobe and left parietal lobe. Extensive hypodensity in a vasogenic pattern in these regions with more focal cystic change evident on images 12 through 14. This largely spares the overlying franz matter. Regional sulcal effacement. No downward tonsillar herniation. Trace midline shift to the right. No hemorrhage. No extra-axial fluid collection. Paranasal sinuses and mastoid air cells clear. Calvarium intact. IMPRESSION: 1. Findings highly suspicious for a neoplastic lesion in the left cerebrum involving the posterior left temporal lobe, left occipital lobe, and left parietal lobe. Further evaluation with contrast-enhanced brain MR recommended. Differential considerations include glioblastoma versus metastatic disease. The report will be called/faxed according to standard departmental protocol. Electronically signed by: Jose R Schmitz M.D. 08/06/2017 1:03 PM Dictated Date/Time: 08/06/2017 12:59 PM Laboratory Results 08/06/17 12:25 Red Blood Count 4.61, Mean Corpuscular Volume 89.8, Mean Corpuscular Hemoglobin 29.3, Mean Corpuscular Hemoglobin Concent 32.6, Mean Platelet Volume 9.6, Neutrophils (%) (Auto) 71.3, Lymphocytes (%) (Auto) 17.7, Monocytes (%) (Auto) 9.7, Eosinophils (%) (Auto) 1.0, Basophils (%) (Auto) 0.2, Neutrophils # (Auto) 5.87, Lymphocytes # (Auto) 1.46, Monocytes # (Auto) 0.80, Eosinophils # (Auto) 0.08, Basophils # (Auto) 0.02 08/06/17 12:25 Test 08/06/17 12:25 08/06/17 12:48 White Blood Count 8.24 K/uL (4.8-10.8) Red Blood Count 4.61 M/uL (4.2-5.4) Hemoglobin 13.5 g/dL (12.0-16.0) Hematocrit 41.4 % (37-47) Mean Corpuscular Volume 89.8 fL (80-100) Mean Corpuscular Hemoglobin 29.3 pg (25-34) Mean Corpuscular Hemoglobin Concent 32.6 g/dl (32-36) Platelet Count 150 K/uL (130-400) Mean Platelet Volume 9.6 fL (7.4-10.4) Neutrophils (%) (Auto) 71.3 % Lymphocytes (%) (Auto) 17.7 % Monocytes (%) (Auto) 9.7 % Eosinophils (%) (Auto) 1.0 % Basophils (%) (Auto) 0.2 % Neutrophils # (Auto) 5.87 K/uL (1.4-6.5) Lymphocytes # (Auto) 1.46 K/uL (1.2-3.4) Monocytes # (Auto) 0.80 K/uL (0.11-0.59) Eosinophils # (Auto) 0.08 K/uL (0-0.5) Basophils # (Auto) 0.02 K/uL (0-0.2) RDW Standard Deviation 48.6 fL (36.4-46.3) RDW Coefficient of Variation 14.8 % (11.5-14.5) Immature Granulocyte % (Auto) 0.1 % Immature Granulocyte # (Auto) 0.01 K/uL (0.00-0.02) Prothrombin Time 11.4 SECONDS (9.0-12.0) Prothromb Time International Ratio 1.1 (0.9-1.1) Activated Partial Thromboplast Time 26.7 SECONDS (21.0-31.0) Partial Thromboplastin Ratio 1.0 Anion Gap 7.0 mmol/L (3-11) Estimated GFR () 77.1 Estimated GFR (Non- 66.6 BUN/Creatinine Ratio 17.2 (10-20) Calcium Level 8.9 mg/dl (8.5-10.1) Total Bilirubin 1.2 mg/dl (0.2-1) Direct Bilirubin 0.2 mg/dl (0-0.2) Aspartate Amino Transf (AST/SGOT) 18 U/L (15-37) Alanine Aminotransferase (ALT/SGPT) 16 U/L (12-78) Alkaline Phosphatase 129 U/L (45-117) Total Protein 7.2 gm/dl (6.4-8.2) Albumin 3.4 gm/dl (3.4-5.0) Lipase 99 U/L (73-393) Bedside Troponin I < 0.030 ng/ml (0-0.045) Laboratory studies as stated above per my review. Medications Administered Medications (Trade) Dose Ordered Sig/Matt Route Start Time Stop Time Status Last Admin Dose Admin Dexamethasone Sodium Phosphate (Decadron Inj) 4 mg NOW STAT IV 08/06/17 13:54 08/06/17 13:56 DC 08/06/17 14:42 4 MG ECG Indication: other (memory loss) Rate (beats per minute): 51 Rhythm: sinus bradycardia Findings: no acute ischemic change, no ectopy Comparison ECG Date: When compared to 11/25/2015 PVC are now absent Change: Patient's electrocardiogram was interpreted by me. ED Course 1152: Past medical records reviewed. The patient was evaluated in room C3, and a complete history and physical examination were performed. 1354: Ordered Decadron 4 mg IV 1332: I reassessed the patient at this time. She is resting comfortably. I discussed the results and treatment plan with the patient and her family. I answered all pertaining questions that she had. She expressed understanding and verbalized agreement. The patient want's to be seen at [facility]. The patient will be transferred for further care. 1352: I spoke with Dr. Bundy neurosurgeon. We discussed the patient's case. He accepts the patient. The patient will be transferred to [facility]. 1415: I reassessed the patient at this time. They want to transport the patient via private vehicle. I had them consent for transfer to [facility]. Medical Decision Differentials include, but are not limited to stroke, intracranial process, infection, cardiac disease, and electrolyte or metabolic abnormality. This patient comes in as described above. She was placed in room C3. She is here for treatment and evaluation of increasing confusion and difficulty writing and reading words. This is been subacutely occur in after a week or so. IV access was established and she was sent over to get a CAT scan of her head. EKG and multiple other blood tests was obtained. She does not appear toxic or lethargic. She has minimal headache. She has no meningeal signs or stiffness. She's had nothing suggest encephalitis. The CAT scan of her head shows a mass with edema which is likely secondary to either brain tumor or metastases. She has no acute electrolyte or metabolic abnormality. She has nothing to suggest infection. I did discuss the case with the [facility] neurosurgeon, Dr. Chua, who had recommended Decadron. She was given 4 mg of Decadron IV .she's remained stable. The family would like to be transferred to [facility] for further inpatient treatment and evaluation and Dr. Chua has accepted the patient. The patient will be transferred by private vehicle as per the patient's and family's request. I think this is reasonable. She well further inpatient neurosurgical evaluation and treatment. Medication Reconcilliation Current Medication List: was personally reviewed by me Blood Pressure Screening Patient's blood pressure: Elevated blood pressure Blood pressure disposition: Elevated BP felt to be situational Consults Time Called: 1343 Consulting Physician: Dr. Bundy neurosurgeon Returned Call: [phone] I spoke with kelly Lernerurgenasrin. We discussed the patient's case. He accepts the patient. The patient will be transferred to [facility]. Impression Primary Impression: Brain tumor Additional Impressions: Confusion Dysgraphia Scribe Attestation The scribe's documentation has been prepared under my direction and personally reviewed by me in its entirety. I confirm that the note above accurately reflects all work, treatment, procedures, and medical decision making performed by me. Departure Information Dispostion Transfer Acute Care Facility ([facility]) Referrals Carmen Araiza M.D. (PCP) Patient Instructions My [facility] Problem Qualifiers
--- NOTE | 2017-08-06 12:28 | DIAGNOSTIC IMAGING REPORT ---
CHEST ONE VIEW PORTABLE CLINICAL HISTORY: 76 years-old Female presenting with CHEST PAIN. TECHNIQUE: Portable upright AP view of the chest was obtained. COMPARISON: 08/25/2016.. FINDINGS: Atherosclerosis of aortic arch. Cardiac silhouette mildly enlarged. Apparent right apical paramediastinal opacity. Lungs and pleural spaces otherwise clear. Degenerative changes of the thoracic spine. Surgical clips noted in the left axilla unchanged. IMPRESSION: 1. Apparent right apical paramediastinal opacity may represent a vascular structure versus less likely consolidation. 2. Mild cardiomegaly. 3. No convincing evidence of acute cardiopulmonary disease. Electronically signed by: Jose R Schmitz M.D. 08/06/2017 12:27 PM Dictated Date/Time: 08/06/2017 12:25 PM
[2017-08-06] MEDS ORDERED: ASPCH81X PO (12:38)
[2017-08-06] MEDS ORDERED: ACET-1256 PO (12:38)
[2017-08-06] MEDS ORDERED: LOSA1TAB38 PO (12:38)
[2017-08-06] MEDS ORDERED: SERT-234 PO (12:38)
[2017-08-06] MEDS ORDERED: HOME1TAB18 PO (12:38)
[2017-08-06] MEDS ORDERED: DOXY100C76 PO (12:38)
[2017-08-06 12:41] LABS: BASO % 0.2 %; BASO ABS # 0.02 K/uL (0-0.2); EOS ABS # 0.08 K/uL (0-0.5); HEMATOCRIT 41.4 % (37-47); HEMOGLOBIN 13.5 g/dL (12.0-16.0); IG# 0.01 K/uL (0.00-0.02); LYMPH % 17.7 %; LYMPH ABS # 1.46 K/uL (1.2-3.4); MEAN CELL VOLUME 89.8 fL (80-100); MEAN CORPUSCULAR HEMOGLOBIN 29.3 pg (25-34); MEAN CORPUSCULAR HGB CONC 32.6 g/dl (32-36); MEAN PLATELET VOLUME 9.6 fL (7.4-10.4); MONO % 9.7 %; NEUT % 71.3 %; NEUT ABS # 5.87 K/uL (1.4-6.5); PLATELET COUNT 150 K/uL (130-400); RED CELL DISTRIBUTION WIDTH CV 14.8 % (11.5-14.5); RED CELL DISTRIBUTION WIDTH SD 48.6 fL (36.4-46.3); WHITE BLOOD COUNT 8.24 K/uL (4.8-10.8)
[2017-08-06 12:45] LABS: INR 1.1 (0.9-1.1); PTT PATIENT 26.7 SECONDS (21.0-31.0)
[2017-08-06 13:05] LABS: ALBUMIN 3.4 gm/dl (3.4-5.0); BLOOD UREA NITROGEN 15 mg/dl (7-18); CALCIUM 8.9 mg/dl (8.5-10.1); CARBON DIOXIDE 29 mmol/L (21-32); CREATININE 0.85 mg/dl (0.60-1.20); GLUCOSE 88 mg/dl (70-99); LIPASE 99 U/L (73-393); POTASSIUM 3.8 mmol/L (3.5-5.1); SODIUM 139 mmol/L (136-145)
--- NOTE | 2017-08-06 13:05 | DIAGNOSTIC IMAGING REPORT ---
HEAD WITHOUT CONTRAST (CT) CLINICAL HISTORY: 76 years-old Female presenting with confusion, dysgraphia, aphasia. TECHNIQUE: Multidetector CT imaging of the head was performed without the use of intravenous contrast. IV contrast: None. A dose lowering technique was used consistent with the principles of ALARA (as low as reasonably achievable). COMPARISON: None. CT DOSE (mGy.cm): The estimated cumulative dose is 537.48 mGy.cm. FINDINGS: [employer] topogram: Unremarkable. Effacement of the trigone and temporal horn of the left lateral ventricle due to a partially cystic appearing hypodense lesion in the posterior left temporal lobe extending into the left occipital lobe and left parietal lobe. Extensive hypodensity in a vasogenic pattern in these regions with more focal cystic change evident on images 12 through 14. This largely spares the overlying franz matter. Regional sulcal effacement. No downward tonsillar herniation. Trace midline shift to the right. No hemorrhage. No extra-axial fluid collection. Paranasal sinuses and mastoid air cells clear. Calvarium intact. IMPRESSION: 1. Findings highly suspicious for a neoplastic lesion in the left cerebrum involving the posterior left temporal lobe, left occipital lobe, and left parietal lobe. Further evaluation with contrast-enhanced brain MR recommended. Differential considerations include glioblastoma versus metastatic disease. The report will be called/faxed according to standard departmental protocol. Electronically signed by: Jose R Schmitz M.D. 08/06/2017 1:03 PM Dictated Date/Time: 08/06/2017 12:59 PM
[2017-08-06 13:07] LABS: ALKALINE PHOSPHATASE 129 U/L (45-117); ALT/SGPT 16 U/L (12-78); AST/SGOT 18 U/L (15-37); TOTAL PROTEIN 7.2 gm/dl (6.4-8.2)
[2017-08-06] MEDS ORDERED: DEXAMETHASONE SOD INJ 4 MG/ML VIAL IV STA (13:54)
[2017-08-06 17:24] VITALS: BP 134/73; PULSE 50; TEMP 36.6; O2SAT 93
== END 2017-08-06 17:26 | disposition short-term general hospital (02) ==
LOC: C.EDB 11:23 → C.EDC 17:26
DX: D49.6 Neoplasm of unspecified behavior of brain (principal); R41.0 Disorientation, unspecified; R27.8 Other lack of coordination; A69.20 Lyme disease, unspecified; I25.10 Atherosclerotic heart disease of native coronary artery without angina pectoris; Z79.82 Long term (current) use of aspirin; Z85.3 Personal history of malignant neoplasm of breast